=== PATIENT | male | born 1955 | race Caucasian/White ===

== ENCOUNTER 2025-03-17 00:48 | Day surgery (SDC) | payer BC, SELFPAY ==
--- OUTSIDE RECORDS SUMMARY | 2008-03-26 05:30 | XMS_ITS | Continuity of Care Document ---
Author Organization [facility] Address [address] [place] [address] [address] [place] [address] Phone Care Team Providers Care Moth Exterminator Name Role Phone Chanell Lopez Unavailable Unavailable Procedures Procedure Date Removal Of Chalazion Office/outpatient Visit, Est Office/outpatient Visit, Est Eye Exam, New Patient Advance Directives Directive Yes / No Effective Date File Name No Information Encounters Encounter Description Practice Location Reason(s) For Visit Diagnoses Date Provider Providers Copied on Encounter [facility], [address] [place] [address] [address], [place], [place], [id number], tel:[phone] SEC [facility] No Information 6-200 8 Jessica Lua. [address] [place] [address] , [address], [place], [place], [facility], . tel:[phone] Referring Provider: Flavio William OD [place], [address] [place], [place] [address]ate [place] [address], [place], [place], [facility]. tel:[phone] [place] [facility] [address] [place] [address] [address], [place], [place], [id number], [place] tel:[phone] SEC [facility] No Information 2-200 8 William OD Flavio. [address] [place] [address] , [address], [place], [place], [facility], . tel:[phone] [place] [facility] [address] [place] [address] [address], [place], [place], [id number], [place] tel:[phone] [facility] [place] No Information Feb-1 5-200 8 William OD Flavio. [address] [facility] , [address], [place], [address], [place]. tel:[phone] [facility], [address], [place], [place], [id number], tel:[phone] [facility] [place] No Information Oct-0 1-200 8 William OD Flavio. [address] , [address], [place], [address], [place]. tel:[phone] Family History Family Member Type Diagnosis Age At Onset No Information Payers Payer name Insurance type Covered alliance party ID Authoriza tion(s) No Information Social History Type Description Quantity Date Captured Comments Sex Male Smoking Status No Information Chief Complaint And Reason For Visit No Information Reason For Referral Reason For Referral No Information History Of Present Illness Encounter Date Complaint History Of Prese nt Illness No Information Functional Status Date Functional Assessmen t No Information Instructions Date Instruction Additional Infor mation No Information Assessments Type Assessment Date No Information Patient Care Teams Name Effective Dates (start - stop) Status Members No Information
[2025-03-09 09:16] VITALS: BMI 36.0
--- OUTSIDE RECORDS SUMMARY | 2025-03-17 00:50 | XMS_ITS | Data Portability ---
[facility] Address [address] [place] [address] Care Team Providers Care Internal Control Manager Name Role Phone YESY VALE Primary Care Provider Assessment Encounter Date Assessment Date Assessment LastModified by Organization Details LastModified Time 01/09/2024 01/09/2024 blood pressure i s up a little bit of walking in caloric restriction that is what he is going to try to do dyslipidemia like for him to be on the atorvastatin if it upsets him let me know set up with a colonoscopy continue current therapy blood pressure again diet exercise pelvic we will continue with amlodipine . [email or web address] Not available 01/20/2024 13:27:27 02/27/2024 02/27/2024 referral made to his work program for substance positivity he return to clinic 1 month he does not want to do anything about the 130/90 blood pressure today said she will try to walk more and eat better. During the interview the patient took out his cell phone and called his dental detail representative this was totally the patient's decision. That individual did state that for Mr. Tena to enter the program that there needed to be a primary care referral. He has already been evaluated by the program and those notes will be entered into the record. Paperwork has been filled out for the referral to the best of our ability [email or web address] Not available 03/01/2024 11:16:01 07/02/2024 07/02/2024 continue current therapy amlodipine for hypertension atorvastatin for dyslipidemia acetaminophen p.r.n. for arthritis I believe his last echo was in 2021 we will probably do 1 this year again. Colonoscopies [email or web address] Not available 07/02/2024 22:40:13 02/17/2025 02/17/2025 Hydrate continue current therapy follow up in 4 months he can check his pulse he knows how to do it and has 1 pulse oximetry at home too so he will monitor it let me know if it does not come down below 100 by tomorrow but again he needs to push fluids [email or web address] Not available 02/17/2025 22:44:30 Plan of Treatment Reminders Order Date Submit Date Provider Last Modified By Organization Details Last Modified Time Details Appointments ANY 15 2025 01:00P Luca Vale MD Not available Not available Not available Lab CMP, serum or plasma 2024 025 [facility], [address], [place], [address], 08/06/2024 08:26:25 CBC w/ auto diff 2024 025 [facility], [address], [place], [address], 08/06/2024 08:26:26 lipid panel, serum 2024 025 [facility], [address], [place], [address], 08/06/2024 08:26:24 PSA, total, serum or plasma 2023 024 [facility], [address], [place], [address], 01/17/2024 13:14:16 lipid panel, serum 2023 024 [facility], [address], [place], [address], 01/17/2024 13:14:14 CMP, serum or plasma 2023 024 [facility], [address], [place], [address], 01/17/2024 13:14:14 CBC w/ auto diff 2023 024 [email or web address], [address], [place], [address], 01/17/2024 13:14:15 Referral None recorded. Procedures colonosco py screening (PROC) 2024 025 [facility], [address], [address], [place], [address], 12/30/2024 11:55:37 Surgeries None recorded. Imaging None recorded. Medication Orders None recorded. Patient TargetsNo targets recorded. Patient Instructions Encounter Date Encounter Id Patient Instructions Last Modified By Organization Details Last Modified Time 07/02/2024 [id number] A healthy lifestyle: care instructions [email or web address] Not available 07/02/2024 17:13:19 Reason for Referral None Reported. Results Created Date Observation Date Name Description Value Unit Range Abnormal Flag Note LastModifiedBy Organization Detail LastModifiedTime 01/16/2001/17/2024 LIPID PANEL cholesterol, total 210 mg/dL 100-19 9 above high normal Not Available [facility] ([facility]) [address] [place], [address], 01/17/2024 13:14:14 01/16/20 24 01/17/2024 LIPID PANEL triglyceride s 180 mg/dL 0-149 above high normal Not Available [facility] ([facility]) [address] [facility], [place], [address], 01/17/2024 13:14:14 01/16/2001/17/2024 LIPID PANEL HDL cholesterol 52 mg/dL >39 Not Available [facility] ([facility]) [address] [place], [address], 01/17/2024 13:14:14 01/16/20 24 01/17/2024 LIPID PANEL VLDL cholesterol luke 32 mg/dL 5-40 Not Available [facility] ([facility]) [address] [facility], [place], [address], 01/17/2024 13:14:14 01/16/20 24 01/17/2024 LIPID PANEL LDL chol calc ([facility]) 126 mg/dL 0-99 above high normal Not Available [facility] ([facility]) [address] [facility], [place], [address], 01/17/2024 13:14:14 01/16/20 24 01/17/2024 COMP. METAB OLIC PANEL (14) glucose 112 mg/dL 70-99 above high normal Not Available [facility] ([facility]) [address] [place], [address], 01/17/2024 13:14:14 01/16/20 24 01/17/2024 COMP. METAB OLIC PANEL (14) BUN 14 mg/dL 8-27 Not Available [facility] ([facility]) [address] [place], [address], 01/17/2024 13:14:14 01/16/20 24 01/17/2024 COMP. METAB OLIC PANEL (14) creatinine 0.86 mg/dL 0.76-1 .27 Not Available [facility] ([facility]) [address] [place], [address], 01/17/2024 13:14:14 01/16/20 24 01/17/2024 COMP. METAB OLIC PANEL (14) eGFR 95 mL/mi n/1.7 3 >59 Not Available [facility] ([facility]) [address] [place], [address], 01/17/2024 13:14:14 01/16/20 24 01/17/2024 COMP. METAB OLIC PANEL (14) BUN/creatini ne ratio 16 10-24 Not Available [facility] ([facility]) [address] [place], [address], 01/17/2024 13:14:14 01/16/20 24 01/17/2024 COMP. METAB OLIC PANEL (14) sodium 139 mmol/ L 134-14 4 Not Available [facility] ([facility]) [address] [facility] [place], [address], 01/17/2024 13:14:14 01/16/20 24 01/17/2024 COMP. METAB OLIC PANEL (14) potassium 4.8 mmol/ L 3.5-5. 2 Not Available [facility] ([facility]) [address] [facility] [place], [address], 01/17/2024 13:14:14 01/16/20 24 01/17/2024 COMP. METAB OLIC PANEL (14) chloride 100 mmol/ L 96-106 Not Available [facility] ([facility]) [address] [facility], [place], [address], 01/17/2024 13:14:14 01/16/20 24 01/17/2024 COMP. METAB OLIC PANEL (14) carbon dioxide, total 25 mmol/ L Not Available [facility] ([facility]) [address] [facility] [place], [address], 01/17/2024 13:14:14 01/16/20 24 01/17/2024 COMP. METAB OLIC PANEL (14) calcium 9.5 mg/dL 8.6-10 .2 Not Available [facility] ([facility]) [address] [facility] [place], [address], 01/17/2024 13:14:14 01/16/20 24 01/17/2024 COMP. METAB OLIC PANEL (14) protein, total 7.7 g/dL 6.0-8. 5 Not Available [facility] ([facility]) [address] [facility] [place], [address], 01/17/2024 13:14:14 01/16/20 24 01/17/2024 COMP. METAB OLIC PANEL (14) albumin 4.5 g/dL 3.9-4. 9 Not Available [facility] ([facility]) [address] [facility], [place], [address], 01/17/2024 13:14:14 01/16/20 24 01/17/2024 COMP. METAB OLIC PANEL (14) globulin, total 3.2 g/dL 1.5-4. 5 Not Available [facility] ([facility]) [address] [facility], [place], [address], 01/17/2024 13:14:14 01/16/20 24 01/17/2024 COMP. METAB OLIC PANEL (14) bilirubin, total 0.3 mg/dL 0.0-1. 2 Not Available [facility] ([facility]) [address] [facility], [place], [address], 01/17/2024 13:14:14 01/16/20 24 01/17/2024 COMP. METAB OLIC PANEL (14) alkaline phosphatase 112 IU/L 44-121 Not Available [facility] ([facility]) [address] [facility], [place], [address], 01/17/2024 13:14:14 01/16/20 24 01/17/2024 COMP. METAB OLIC PANEL (14) AST (SGOT) 18 IU/L 0-40 Not Available [facility] ([facility]) [address] [facility], [place], [address], 01/17/2024 13:14:14 01/16/20 24 01/17/2024 COMP. METAB OLIC PANEL (14) ALT (SGPT) 19 IU/L 0-44 Not Available [facility] ([facility]) [address] [facility], [place], [address], 01/17/2024 13:14:14 01/16/20 24 01/17/2024 CBC WITH DIFFE RENTI AL/PL ATELE T WBC 6.0 x10e3 /uL 3.4-10 .8 Not Available [facility] ([facility]) [address] [facility], [place], [address], 01/17/2024 13:14:15 01/16/20 24 01/17/2024 CBC WITH DIFFE RENTI AL/PL ATELE T RBC 5.03 x10e6 /uL 4.14-5 .80 Not Available [facility] ([facility]) [address] [facility], [place], [address], 01/17/2024 13:14:15 01/16/20 24 01/17/2024 CBC WITH DIFFE RENTI AL/PL ATELE T hemoglobin 15.1 g/dL 13.0-1 7.7 Not Available [facility] ([facility]) [address] [facility], [place], [address], 01/17/2024 13:14:15 01/16/20 24 01/17/2024 CBC WITH DIFFE RENTI AL/PL ATELE T hematocrit 46.1 % 37.5-5 1.0 Not Available [facility] ([facility]) [address] [facility], [place], [address], 01/17/2024 13:14:15 01/16/2001/17/2024 CBC WITH DIFFE RENTI AL/PL ATELE T MCV 92 fL 79-97 Not Available [facility] ([facility]) [address] [place], [address], 01/17/2024 13:14:15 01/16/20 24 01/17/2024 CBC WITH DIFFE RENTI AL/PL ATELE T MCH 30.0 pg 26.6-3 3.0 Not Available [facility] ([facility]) [address] [place], [address], 01/17/2024 13:14:15 01/16/20 24 01/17/2024 CBC WITH DIFFE RENTI AL/PL ATELE T MCHC 32.8 g/dL 31.5-3 5.7 Not Available [facility] ([facility]) [address] [place], [address], 01/17/2024 13:14:15 01/16/20 24 01/17/2024 CBC WITH DIFFE RENTI AL/PL ATELE T RDW 12.8 % 11.6-1 5.4 Not Available [facility] ([facility]) [address] [facility], [place], [address], 01/17/2024 13:14:15 01/16/20 24 01/17/2024 CBC WITH DIFFE RENTI AL/PL ATELE T platelets 169 x10e3 /uL 150-45 0 Not Available [facility] ([facility]) [address] [facility], [place], [address], 01/17/2024 13:14:15 01/16/20 24 01/17/2024 CBC WITH DIFFE RENTI AL/PL ATELE T neutrophils 42 % notest ab. Not Available [facility] ([facility]) [address] [facility], [place], [address], 01/17/2024 13:14:15 01/16/20 24 01/17/2024 CBC WITH DIFFE RENTI AL/PL ATELE T lymphs 43 % notest ab. Not Available [facility] ([facility]) [address] [facility], [place], [address], 01/17/2024 13:14:15 01/16/20 24 01/17/2024 CBC WITH DIFFE RENTI AL/PL ATELE T monocytes 11 % notest ab. Not Available [facility] ([facility]) [address] [facility], [place], [address], 01/17/2024 13:14:15 01/16/20 24 01/17/2024 CBC WITH DIFFE RENTI AL/PL ATELE T eos 3 % notest ab. Not Available [facility] ([facility]) [address] [facility], [place], [address], 01/17/2024 13:14:15 01/16/20 24 01/17/2024 CBC WITH DIFFE RENTI AL/PL ATELE T basos 1 % notest ab. Not Available [facility] ([facility]) [address] [facility], [place], [address], 01/17/2024 13:14:15 01/16/20 24 01/17/2024 CBC WITH DIFFE RENTI AL/PL ATELE T neutrophils (absolute) 2.5 x10e3 /uL 1.4-7. 0 Not Available [facility] ([facility]) [address] [facility], [place], [address], 01/17/2024 13:14:15 01/16/20 24 01/17/2024 CBC WITH DIFFE RENTI AL/PL ATELE T lymphs (absolute) 2.6 x10e3 /uL 0.7-3. 1 Not Available [facility] ([facility]) [address] [facility], [place], [address], 01/17/2024 13:14:15 01/16/20 24 01/17/2024 CBC WITH DIFFE RENTI AL/PL ATELE T monocytes(ab solute) 0.7 x10e3 /uL 0.1-0. 9 Not Available [facility] ([facility]) [address] [facility], [place], [address], 01/17/2024 13:14:15 01/16/20 24 01/17/2024 CBC WITH DIFFE RENTI AL/PL ATELE T eos (absolute) 0.2 x10e3 /uL 0.0-0. 4 Not Available [facility] ([facility]) [address] [place], [address], 01/17/2024 13:14:15 01/16/20 24 01/17/2024 CBC WITH DIFFE RENTI AL/PL ATELE T baso (absolute) 0.1 x10e3 /uL 0.0-0. 2 Not Available [facility] ([facility]) [address] [place], [address], 01/17/2024 13:14:15 01/16/20 24 01/17/2024 CBC WITH DIFFE RENTI AL/PL ATELE T immature granulocytes 0 % notest ab. Not Available [facility] ([facility]) [address] [facility], [place], [address], 01/17/2024 13:14:15 01/16/20 24 01/17/2024 CBC WITH DIFFE RENTI AL/PL ATELE T immature grans (abs) 0.0 x10e3 /uL 0.0-0. 1 Not Available [facility] ([facility]) [address] [facility], [place], [address], 01/17/2024 13:14:15 01/16/20 24 01/17/2024 PROST ATE-S PECIF IC AG prostate specific Ag 0.3 NG/mL 0.0-4. 0 Jerry ECLIA metho dolog y. Accor ding to the Ameri can [employer] g[employer] i[employer] n, Serum PSA shoul d decre ase and remai n at undet ectab le level s after radic al prost atect matty. The AUA defin es bioch emica l recur rence as an initi al PSA value 0.2 ng/mL or great er follo wed by a subse quent confi rmato ry PSA value 0.2 ng/mL or great er. Value s obtai chacorta with diffe rent assay metho ds or kits canno t be used inter weeks eably . Resul ts canno t be inter prete d as absol jena evide nce of the prese nce or absen ce of zander rivera se. Not Available [facility] ([facility]) [address] [facility], [place], [address], 01/17/2024 13:14:16 08/06/19 25 08/06/2024 LIPID PANEL cholesterol, total 200 mg/dL 100-19 9 above high normal Not Available [facility] ([facility]) [address] [facility], [place], [address], 08/06/2024 08:26:24 08/06/19 25 08/06/2024 LIPID PANEL triglyceride s 255 mg/dL 0-149 above high normal Not Available [facility] ([facility]) [address] [place], [address], 08/06/2024 08:26:24 08/06/19 25 08/06/2024 LIPID PANEL HDL cholesterol 47 mg/dL >39 Not Available [facility] ([facility]) [address] [place], [address], 08/06/2024 08:26:24 08/06/19 25 08/06/2024 LIPID PANEL VLDL cholesterol luke 44 mg/dL 5-40 above high normal Not Available [facility] ([facility]) [address] [place], [address], 08/06/2024 08:26:24 08/06/19 25 08/06/2024 LIPID PANEL LDL chol calc ([facility]) 109 mg/dL 0-99 above high normal Not Available [facility] ([facility]) [address] [place], [address], 08/06/2024 08:26:24 08/06/19 25 08/06/2024 COMP. METAB OLIC PANEL (14) glucose 103 mg/dL 70-99 above high normal Not Available [facility] ([facility]) [address] [place], [address], 08/06/2024 08:26:25 08/06/19 25 08/06/2024 COMP. METAB OLIC PANEL (14) BUN 14 mg/dL 8-27 Not Available [facility] ([facility]) [address] [place], [address], 08/06/2024 08:26:25 08/06/19 25 08/06/2024 COMP. METAB OLIC PANEL (14) creatinine 0.86 mg/dL 0.76-1 .27 Not Available [facility] ([facility]) [address], [place], [address], 08/06/2024 08:26:25 08/06/19 25 08/06/2024 COMP. METAB OLIC PANEL (14) eGFR 95 mL/mi n/1.7 3 >59 Not Available [facility] ([facility]) [address] [place], [address], 08/06/2024 08:26:25 08/06/19 25 08/06/2024 COMP. METAB OLIC PANEL (14) BUN/creatini ne ratio 16 10-24 Not Available [facility] ([facility]) [address] [facility] [place], [address], 08/06/2024 08:26:25 08/06/19 25 08/06/2024 COMP. METAB OLIC PANEL (14) sodium 139 mmol/ L 134-14 4 Not Available [facility] ([facility]) [address] [facility] [place], [address], 08/06/2024 08:26:25 08/06/19 25 08/06/2024 COMP. METAB OLIC PANEL (14) potassium 4.4 mmol/ L 3.5-5. 2 Not Available [facility] ([facility]) [address] [facility] [place], [address], 08/06/2024 08:26:25 08/06/19 25 08/06/2024 COMP. METAB OLIC PANEL (14) chloride 103 mmol/ L 96-106 Not Available [facility] ([facility]) [address] [facility] [place], [address], 08/06/2024 08:26:25 08/06/19 25 08/06/2024 COMP. METAB OLIC PANEL (14) carbon dioxide, total 22 mmol/ L 20-29 Not Available [facility] ([facility]) [address] [facility] [place], [address], 08/06/2024 08:26:25 08/06/19 25 08/06/2024 COMP. METAB OLIC PANEL (14) calcium 9.0 mg/dL 8.6-10 .2 Not Available [facility] ([facility]) [address] [facility] [place], [address], 08/06/2024 08:26:25 08/06/19 25 08/06/2024 COMP. METAB OLIC PANEL (14) protein, total 7.4 g/dL 6.0-8. 5 Not Available [facility] ([facility]) [address] [facility] [place], [address], 08/06/2024 08:26:25 08/06/19 25 08/06/2024 COMP. METAB OLIC PANEL (14) albumin 4.3 g/dL 3.9-4. 9 Not Available [facility] ([facility]) [address] [facility] [place], [address], 08/06/2024 08:26:25 08/06/19 25 08/06/2024 COMP. METAB OLIC PANEL (14) globulin, total 3.1 g/dL 1.5-4. 5 Not Available [facility] ([facility]) [address] [facility] [place], [address], 08/06/2024 08:26:25 08/06/19 25 08/06/2024 COMP. METAB OLIC PANEL (14) bilirubin, total 0.4 mg/dL 0.0-1. 2 Not Available [facility] ([facility]) [address] [facility] [place], [address], 08/06/2024 08:26:25 08/06/19 25 08/06/2024 COMP. METAB OLIC PANEL (14) alkaline phosphatase 127 IU/L 44-121 above high normal Not Available [facility] ([facility]) [address] [facility] [place], [address], 08/06/2024 08:26:25 08/06/19 25 08/06/2024 COMP. METAB OLIC PANEL (14) AST (SGOT) 17 IU/L 0-40 Not Available [facility] ([facility]) [address] [facility] [place], [address], 08/06/2024 08:26:25 08/06/19 25 08/06/2024 COMP. METAB OLIC PANEL (14) ALT (SGPT) 18 IU/L 0-44 Not Available [facility] ([facility]) [address] [facility] [place], [address], 08/06/2024 08:26:25 08/06/19 25 08/06/2024 CBC WITH DIFFE RENTI AL/PL ATELE T WBC 7.7 x10e3 /uL 3.4-10 .8 Not Available [facility] ([facility]) [address] [place], [address], 08/06/2024 08:26:26 08/06/19 25 08/06/2024 CBC WITH DIFFE RENTI AL/PL ATELE T RBC 4.87 x10e6 /uL 4.14-5 .80 Not Available [facility] ([facility]) [address] [place], [address], 08/06/2024 08:26:26 08/06/1908/06/2024 CBC WITH DIFFE RENTI AL/PL ATELE T hemoglobin 14.4 g/dL 13.0-1 7.7 Not Available [facility] ([facility]) [address] [place], [address], 08/06/2024 08:26:26 08/06/19 25 08/06/2024 CBC WITH DIFFE RENTI AL/PL ATELE T hematocrit 43.2 % 37.5-5 1.0 Not Available [facility] ([facility]) [address] [place], [address], 08/06/2024 08:26:26 08/06/19 25 08/06/2024 CBC WITH DIFFE RENTI AL/PL ATELE T MCV 89 fL 79-97 Not Available [facility] ([facility]) [address] [place], [address], 08/06/2024 08:26:26 08/06/19 25 08/06/2024 CBC WITH DIFFE RENTI AL/PL ATELE T MCH 29.6 pg 26.6-3 3.0 Not Available [facility] ([facility]) [address] [facility], [place], [address], 08/06/2024 08:26:26 08/06/19 25 08/06/2024 CBC WITH DIFFE RENTI AL/PL ATELE T MCHC 33.3 g/dL 31.5-3 5.7 Not Available [facility] ([facility]) [address] [place], [address], 08/06/2024 08:26:26 08/06/19 25 08/06/2024 CBC WITH DIFFE RENTI AL/PL ATELE T RDW 12.8 % 11.6-1 5.4 Not Available [facility] ([facility]) [address] [place], [address], 08/06/2024 08:26:26 08/06/19 25 08/06/2024 CBC WITH DIFFE RENTI AL/PL ATELE T platelets 185 x10e3 /uL 150-45 0 Not Available [facility] ([facility]) [address] [place], [address], 08/06/2024 08:26:26 08/06/19 25 08/06/2024 CBC WITH DIFFE RENTI AL/PL ATELE T neutrophils 54 % notest ab. Not Available [facility] ([facility]) [address] [place], [address], 08/06/2024 08:26:26 08/06/19 25 08/06/2024 CBC WITH DIFFE RENTI AL/PL ATELE T lymphs 34 % notest ab. Not Available [facility] ([facility]) [address] [facility], [place], [address], 08/06/2024 08:26:26 08/06/19 25 08/06/2024 CBC WITH DIFFE RENTI AL/PL ATELE T monocytes 10 % notest ab. Not Available [facility] ([facility]) [address] [facility], [place], [address], 08/06/2024 08:26:26 08/06/19 25 08/06/2024 CBC WITH DIFFE RENTI AL/PL ATELE T eos 1 % notest ab. Not Available [facility] ([facility]) [address] [facility], [place], [address], 08/06/2024 08:26:26 08/06/19 25 08/06/2024 CBC WITH DIFFE RENTI AL/PL ATELE T basos 1 % notest ab. Not Available [facility] ([facility]) [address] [facility], [place], [address], 08/06/2024 08:26:26 08/06/19 25 08/06/2024 CBC WITH DIFFE RENTI AL/PL ATELE T neutrophils (absolute) 4.1 x10e3 /uL 1.4-7. 0 Not Available [facility] ([facility]) [address] [facility], [place], [address], 08/06/2024 08:26:26 08/06/19 25 08/06/2024 CBC WITH DIFFE RENTI AL/PL ATELE T lymphs (absolute) 2.7 x10e3 /uL 0.7-3. 1 Not Available [facility] ([facility]) [address] [facility], [place], [address], 08/06/2024 08:26:26 08/06/19 25 08/06/2024 CBC WITH DIFFE RENTI AL/PL ATELE T monocytes(ab solute) 0.7 x10e3 /uL 0.1-0. 9 Not Available [facility] ([facility]) [address] [facility], [place], [address], 08/06/2024 08:26:26 08/06/19 25 08/06/2024 CBC WITH DIFFE RENTI AL/PL ATELE T eos (absolute) 0.1 x10e3 /uL 0.0-0. 4 Not Available [facility] ([facility]) [address] [place], [address], 08/06/2024 08:26:26 08/06/19 25 08/06/2024 CBC WITH DIFFE RENTI AL/PL ATELE T baso (absolute) 0.1 x10e3 /uL 0.0-0. 2 Not Available [facility] ([facility]) [address] [facility], [place], [address], 08/06/2024 08:26:26 08/06/19 25 08/06/2024 CBC WITH DIFFE RENTI AL/PL ATELE T immature granulocytes 0 % notest ab. Not Available [facility] ([facility]) [address] [facility], [place], [address], 08/06/2024 08:26:26 08/06/19 25 08/06/2024 CBC WITH DIFFE RENTI AL/PL ATELE T immature grans (abs) 0.0 x10e3 /uL 0.0-0. 1 Not Available [facility] ([facility]) [address] [place], [address], 08/06/2024 08:26:26 01/18/20 24 04/13/2020 upper endos copy proce dure (EGD) (PROC ) No observ ation record ed. BARCODE Not Available 2023 11:22:04 Result Notes None recorded. Problems Name Problem SNOMED Code Status Onset Date Resolution Date Notes Provider Name and Address Organization Details Recorded Time Essential hypertension 23679535 Active 2023 Yesy Vale MD Attn: Lorelei neff,[address] [facility], [place], [address], [facility] 4 13:27:29 Hyperlipidemia 89281213 Active 2023 Yesy Vale MD Attn: Lorelei neff,[address] [facility], [place], [address], [facility] 4 13:27:33 Osteoarthritis 240665643 Active 2023 Yesy Vale MD Attn: Lorelei neff,[address], [place], [address], [facility] 4 13:27:34 Problem Notes None recorded. Procedures Surgical History Date Name Laterality Status Provider Name and Address Organization Details Recorded Time 2 Knee Surgery completed Elizabeth Gardner MA [facility] 01/09/2024 16:40:45 8 Appendectomy completed Elizabeth Gardner MA [facility] 01/09/2024 16:40:58 Imaging Results None recorded. Procedure Notes None recorded. Medical Equipment None Reported. Allergies No known drug allergies Medications Name Sig Start Date Stop Date Status Note LastModified by Organization Details LastModified Time atorvastat in 20 mg tablet 08/07 completed mess with pts stomach see pt case 5 Not Available Not Available Not Available amlodipine 2.5 mg tablet TAKE 1 TABLET DAILY 2024 active Not Available Not Available Not Avai lable rosuvastat in 20 mg tablet TAKE 1 TABLET DAILY 2024 active Not Available Not Available Not Avai lable Vitals Date Recorded Body height Body mass index (BMI) Body weight Heart rate Oxygen saturation Oxygen saturation in Arterial blood by Pulse oximetry Systolic And Diastolic Provider Name and Address Organization Details Last Updated DateTime 5 177.8 cm 37.5 kg/m2 268503. 12 g 98 /min 98 % 98 % 130/84 mm[Hg] Rowena Payne MA [facility] 5 16:09:57 Date Recorded Body weight Body mass index (BMI) Body height Heart rate Oxygen saturation Oxygen saturation in Arterial blood by Pulse oximetry Systolic And Diastolic Provider Name and Address Organization Details Last Updated DateTime 4 453584. 95 g 36.3 kg/m2 177.8 cm 64 /min 98 % 98 % 142/70 mm[Hg] Elizabeth Gardner MA [facility] 4 16:44:09 Date Recorded Body height Body mass index (BMI) Body weight Heart rate Oxygen saturation Oxygen saturation in Arterial blood by Pulse oximetry Systolic And Diastolic Provider Name and Address Organization Details Last Updated DateTime 5 177.8 cm 36.5 kg/m2 507331. 62 g 110 /min 96 % 96 % 138/70 mm[Hg] Elizabeth Gardner MA [facility] 5 15:57:06 Date Recorded Body height Body mass index (BMI) Body weight Heart rate Oxygen saturation Oxygen saturation in Arterial blood by Pulse oximetry Systolic And Diastolic Provider Name and Address Organization Details Last Updated DateTime 4 177.8 cm 36.6 kg/m2 459674. 34 g 96 /min 97 % 97 % 130/90 mm[Hg] Rowena Payne MA [facility] 4 15:05:06 Social History Question Answer Notes LastModified by Organizat ion Details LastModified Time Tobacco Smoking Status Never Smoker [facility]/09[facility]24 16:38:25 Are You Blind Or Do You Have Difficulty Seeing? No Information n ot available 01/09/2024 What Is Your Level Of Caffeine Consumption? Moderate Coffee Information not available 01/09/2024 In The 14 Days Before Symptom Onset, Have You Had Close Contact With A Laboratory-confirm ed COVID-19 While That Case Was Ill? No Information n ot available 01/09/2024 In The 14 Days Before Symptom Onset, Have You Had Close Contact With A Person Who Is Under Investigation For COVID-19 While That Person Was Ill? No Information not available 01/09/2024 Have You Been To An Area Known To Be High Risk For COVID-19? No Information not available 01/09/2024 Are You Deaf Or Do You Have Serious Difficulty Hearing? No Information not available 01/09/2024 What Type Of Diet Are You Following? REGULAR Information n ot available 01/09/2024 Are There Any Guns Present In Your Home? No Information not available 01/09/2024 What Was The Date Of Your Most Recent Tobacco Screening? 02/17/2025 Information not available 02/17/2025 What Is Your Relationship Status? Information not available 01/09/2024 Do You Use Your Seat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
--- OUTSIDE RECORDS SUMMARY | 2025-03-17 00:50 | XMS_ITS | Clinical Summary ---
Author Organization [facility] Address [address] [place] [address] Care Team Providers Care Business Planning Manager Name Role Phone Perico Vale MD Primary Care Provider [phone] Allergies No known active allergies Medications amLODIPine (NORVASC) 2.5 mg tabletIndicati ons:hypertensi on Take 1 tablet (2.5 mg total) by mouth every morning 9 Active acetaminophen (TYLENOL) 500 mg tabletIndicati ons:Pain Take 2 tablets (1,000 mg total) by mouth every 8 (eight) hours 90 tablet 2 Active atorvastatin (LIPITOR) 10 mg tablet atorvastatin 10 mg tablet TAKE 1 TABLET DAILY 022 Discontin ued(Other ) Active Problems Problem Noted Date Diagnosed Date Primary osteoarthritis of left knee 04/27/2022 Hyperglycemia 02/27/2022 Essential hypertension 02/23/2022 Pain in limb 02/23/2022 Rash 02/23/2022 Arthralgia of left knee 06/29/2021 Heart murmur 06/29/2021 Pain in joint of left shoulder 06/29/2021 Gastroesophageal reflux disease without esophagi tis 02/20/2021 Osteoarthritis 04/08/2020 Abnormal cardiovascular stress test 10/03/2018 Dyslipidemia 12/14/2017 Immunizations Immunization Administration Dates Next Due Moderna SARS-CoV-2 Monovalent Vaccination (12+ Y RS) 01/27/2021 Surgical History Surgery Date Site/Laterality Comments APPENDECTOMY ~40 years ago ESOPHAGEAL DILATION 2019 COLONOSCOPY Medical History Medical History Date Comments HTN (hypertension) HLD (hyperlipidemia) Family History Medical History Relation Name Comments Stroke Mother Anesthesia problems Neg Hx Relation Name Status Comments Mother Social History Tobacco Use Types Packs/Day Years Used Date Smoking Tobacco: Never Smokeless Tobacco: Never Tobacco Cessation:Counseling Given: Not Answered AUDIT-C Answer Date Recorded Q1: How often do you have a drink containing alc ohol? 2-3 times a week 04/05/2022 Q2: How many drinks containi ng alcohol do you have on a typical day when you are drinking? 3 or 4 04/05/2022 Frequency of Binge Drinking Not on file 03/21 Sex and Gender Information Value Date Recorded Sex Assigned at Not on file Legal Sex Male 8:52 AM CDT Gender Identity Not on file Sexual Orientation Not on file Obstetrics History Last Filed Vital Signs Vital Sign Reading Time Taken Comments Blood Pressure 128/89 05/11/2022 1:38 PM [employer] Pulse 92 05/11/2022 1:38 PM [employer] Temperature 36.8 C (98.2 F) 05/11/2022 1:38 PM [employer] Respiratory Rate 18 05/11/2022 1:38 PM [employer] Oxygen Saturation 99% 05/11/2022 1:38 PM [employer] Inhaled Oxygen Concentration - - Weight 115.2 kg (254 lb) 04/28/2022 11:24 AM [employer] Height 177.8 cm (5' 10) 04/28/2022 11:24 AM [employer] Body Mass Index 36.45 04/28/2022 11:24 AM [employer] Plan of Treatment Health Maintenance Due Date Last Done Comments Colon Cancer Screening-Colonoscopy 1955 Depression Screening 1955 Hepatitis C Screening 1955 Prostate Cancer Screening-PSA 1957 DTaP/Tdap/Td Vaccine (1 - Tdap) 1968 Hepatitis B Screening 07/31/1975 Pneumococcal vaccine 65+ (1 of 1 - PCV) 07/31/2007 Zoster Vaccine (1 of 2) 07/31/2007 Abdominal Aortic Aneurysm (A AA) Screen 2022 Well Visit 65+ 2022 Fall Risk Assessment 04/27/2023 04/27/2022 Covid-19 Vaccine ( season) 2025 02/17/2021, 01/27/2021, 01/27/2021 Influenza Vaccine (#1) 2025 Medical Devices Implanted Type Area Wild Life Manager Device Identifier Shelf Expiration Date Model / Serial / Lot [employer] Attune Fb Tib Base Sz 6 Por [id number] - Sna - [id number] Implanted:Qty: 1 on 04/27/2022 by Handy Chan MD at [facility] Other - see comments Left: Knee [employer] [id number] 01/19/2032 [id number] / NA / [id number] [employer] Attune Cruciate Retain Cementless Knee Left 7 Component Femoral [id number] - Sna - [id number] Implanted:Qty: 1 on 04/27/2022 by Handy Chan MD at [facility] Other - see comments Left: Knee [employer] [id number] 07/19/2031 [id number] / NA / [id number] [employer] Insert Tibial 7 14mm Knee Aox Cruc-Ret Fix Brng Attune Strl [id number] - Sna - [id number] Implanted:Qty: 1 on 04/27/2022 by Handy Chan MD at [facility] Other - see comments Left: Knee [employer] [id number] 04/19/2024 [id number] / NA / [id number] Insurance [employer] OOS BLUE ACCESS OOS BLUE ACC CHOICE OOS BLUE ACCESS OOS Care Teams Business Planning Manager Relationship Specialty Start Date End Date Perico Vale MD PCP - General Internal Medicine 08/03/21
--- OUTSIDE RECORDS SUMMARY | 2025-03-17 00:50 | XMS_ITS | Data Portability ---
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 Blood work and colonoscopy [email or web address] Not available 09/24/2022 12:02:17 04/18/2023 04/18/2023 Will continue current therapy last blood work been reviewed follow-up in 4 months [email or web address] Not available 04/28/2023 13:57:48 Plan of Treatment Reminders Order Date Submit Date Provider Last Modified By Organization Details Last Modified Time Details Appointments None recorded. Lab PSA, total, serum or plasma [address] [facility], [address] [place], [address], 3 12:40:33 CMP, serum or plasma [address] [facility], [address] [place], [address], 3 12:00:06 lipid panel, serum [address] [facility], [address] [place], [address], 3 12:00:08 Referral None recorded. Procedures colonoscopy screening (PROC) 2022 023 [email or web address] Anamaria Oneill MD, [address] [facility], [facility] [address], [place], [address], 14:27:53 Surgeries None recorded. Imaging None recorded. Medication Orders None recorded. Patient TargetsNo targets recorded. Patient InstructionsNo instructions recorded. Reason for Referral None Reported. Results Created Date Observation Date Name Description Value Unit Range Abnormal Flag Note LastModifiedBy Organization Detail LastModifiedTime 07/15/1907/15/2021 PSA SCREE N PSA medicare screen 0.30 NG/mL 0.00-4 .00 Not Available [facility] (Lab) [address] [place], [address], 07/15/2021 12:34:12 07/15/19 22 07/15/2021 LIPID PANEL cholesterol 200 mg/dL 140-19 9 high NIH MARIA ELENA NSUS RECOM MENDA TION FOR [place] STERO L: ADULT CHILD LOW RISK: <200 <170 BORDE RLINE : <200- 239 ----- HIGH RISK: >240 >200 Not Available [facility] (Lab) [address] [place], [address], 07/15/2021 12:06:11 07/15/1907/15/2021 LIPID PANEL triglyceride s 223 mg/dL 0-150 high NIH MARIA ELENA NSUS REPOR T RECOM MENDA TION FOR TRIGL YCERI SHARIFA: ADULT CHILD LOW RISK: <150 ----- BODER LINE: 150-1 99 ----- HIGH RISK: >200 ----- Not Available [facility] (Lab) [address] [place], [address], 07/15/2021 12:06:11 07/15/19 22 07/15/2021 LIPID PANEL HDL cholesterol 58 mg/dL 40- Not Available [facility] (Lab) [address] [place], [address], 07/15/2021 12:06:11 07/15/19 22 07/15/2021 LIPID PANEL LDL cholesterol, calculated 97 mg/dL 0-130 NIH MARIA ELENA NSUS REPOR T RECOM MENDA TIONS FOR LDL: ADULT CHILD LOW RISK <130 <110 (OPTI MAL LDL) <100 ----- BORDE RLINE : 130-1 59 ----- HIGH RISK: >160 >130 A TRIGL YCERI DE RESUL T >400 INVAL IDATE S THE CALCU LATIO N FOR LDL FRACT IONAT ION - THE LDL RESUL T WILL NOT BE REPOR AYAH. Not Available [facility] (Lab) [address] [place], [address], 07/15/2021 12:06:11 07/15/19 22 07/15/2021 COMPR EHENS MALISSA METAB OLIC PANEL sodium 137 mmol/ L 137-14 5 Not Available [facility] (Lab) [address] [place], [address], 07/15/2021 12:05:37 07/15/19 22 07/15/2021 COMPR EHENS MALISSA METAB OLIC PANEL potassium 4.5 mmol/ L 3.5-5. 1 Not Available [facility] (Lab) [address] [place], [address], 07/15/2021 12:05:37 07/15/19 22 07/15/2021 COMPR EHENS MALISSA METAB OLIC PANEL chloride 103 mmol/ L 98-107 Not Available [facility] (Lab) [address] [place], [address], 07/15/2021 12:05:37 07/15/19 22 07/15/2021 COMPR EHENS MALISSA METAB OLIC PANEL carbon dioxide 31 mmol/ L 22-30 high Not Available [facility] (Lab) [address] [place], [address], 07/15/2021 12:05:37 07/15/19 22 07/15/2021 COMPR EHENS MALISSA METAB OLIC PANEL agap 7.5 mmol/ L 14-22 low Not Available [facility] (Lab) [address] [place], [address], 07/15/2021 12:05:37 07/15/19 22 07/15/2021 COMPR EHENS MALISSA METAB OLIC PANEL glucose 115 mg/dL 70-99 high Not Available [facility] (Lab) [address] [place], [address], 07/15/2021 12:05:37 07/15/19 22 07/15/2021 COMPR EHENS MALISSA METAB OLIC PANEL BUN 15 mg/dL 8-19 Not Available [facility] (Lab) [address] [place], [address], 07/15/2021 12:05:37 07/15/19 22 07/15/2021 COMPR EHENS MALISSA METAB OLIC PANEL creatinine 0.75 mg/dL 0.66-1 .25 Not Available [facility] (Lab) [address] [place], [address], 07/15/2021 12:05:37 07/15/19 22 07/15/2021 COMPR EHENS MALISSA METAB OLIC PANEL GFR >60 Refer ence Range : [place] ge GFR Healt hy Adult : >60 mL/mi n/1.7 3 m2 Chron ic Kidne y Disea se: 15-60 mL/mi n/1.7 3 m2 Kidne y Failu re: <15/m L/min /1.73 m2 www.n iddk. nih.g ov The MDRD study equat ion has not been valid ated in child fernanda <18 years of age; pregn ant women ; the elder ly >85 years of age; or in some racia l or ethni c subgr oups, such as Hispa nics. Outsi de the valid ated genevieve eters , estim ated GFR is less accur ate, requi ring clini luke judgm ent on a case- by-ca se basis . Clini luke inter preta tion for other races and ages must be made by the clini laurie. The MDRD study equat ion has not been valid ated for the evalu ation of serum creat inine relat ed to nutri ikan l statu s or medic ation usage . For perso ns <18 years of age, a pedia tric GFR calcu latdilan is avail able on the [facility] websi te: https :[email or web address] garcias.estrella valdes/pr ofess ional s/kdo qi/gf r_cal culat or Not Available [facility] (Lab) [address] [place], [address], 07/15/2021 12:05:37 07/15/19 22 07/15/2021 COMPR EHENS MALISSA METAB OLIC PANEL alkaline phosphatase 97 U/L 38-126 Not Available [facility] (Lab) [address] [place], [address], 07/15/2021 12:05:37 07/15/19 22 07/15/2021 COMPR EHENS MALISSA METAB OLIC PANEL alanine aminotransfe rase 26 U/L 0-50 Not Available [facility] (Lab) [address] [place], [address], 07/15/2021 12:05:37 07/15/19 22 07/15/2021 COMPR EHENS MALISSA METAB OLIC PANEL aspartate aminotransfe rase 24 U/L 15-46 Not Available [facility] (Lab) [address] [place], [address], 07/15/2021 12:05:37 07/15/19 22 07/15/2021 COMPR EHENS MALISSA METAB OLIC PANEL bilirubin, total 0.50 mg/dL 0.20-1 .30 Not Available [facility] (Lab) [address] [place], [address], 07/15/2021 12:05:37 07/15/19 22 07/15/2021 COMPR EHENS MALISSA METAB OLIC PANEL calcium 9.7 mg/dL 8.4-10 .2 Not Available [facility] (Lab) [address] [place], [address], 07/15/2021 12:05:37 07/15/19 22 07/15/2021 COMPR EHENS MALSISA METAB OLIC PANEL total protein 7.7 g/dL 6.3-8. 2 Not Available [facility] (Lab) [address] [place], [address], 07/15/2021 12:05:37 07/15/19 22 07/15/2021 COMPR EHENS MALISSA METAB OLIC PANEL albumin 4.6 g/dL 3.0-4. 4 high Not Available [facility] (Lab) [address] [place], [address], 07/15/2021 12:05:37 07/15/19 22 07/15/2021 COMPR EHENS MALISSA METAB OLIC PANEL globulin 3.1 g/dL 2.6-4. 2 Not Available [facility] (Lab) [address] [place], [address], 07/15/2021 12:05:37 07/15/19 22 07/15/2021 COMPR EHENS MALISSA METAB OLIC PANEL A/G ratio 1.5 ratio 1.0-2. 0 Not Available [facility] (Lab) [address] [place], [address], 07/15/2021 12:05:37 07/15/19 22 07/15/2021 CBC/C OMPLE TE BLD COUNT W/DIF F white blood cells 5.5 x10'3 /uL 4.2-10 .8 Not Available [facility] (Lab) [address] [place], [address], 07/15/2021 11:53:00 07/15/19 22 07/15/2021 CBC/C OMPLE TE BLD COUNT W/DIF F red blood cells 5.16 x10'6 /uL 4.10-5 .80 Not Available [facility] (Lab) [address] [place], [address], 07/15/2021 11:53:00 07/15/19 22 07/15/2021 CBC/C OMPLE TE BLD COUNT W/DIF F hemoglobin 15.4 g/dL 13.2-1 7.0 Not Available [facility] (Lab) [address] [place], [address], 07/15/2021 11:53:00 07/15/19 22 07/15/2021 CBC/C OMPLE TE BLD COUNT W/DIF F hematocrit 45.5 % 39.3-5 0.0 Not Available [facility] (Lab) [address] [place], [address], 07/15/2021 11:53:00 07/15/19 22 07/15/2021 CBC/C OMPLE TE BLD COUNT W/DIF F mean red cell volume 88.2 fL 80.0-9 7.0 Not Available [facility] (Lab) [address] [place], [address], 07/15/2021 11:53:00 07/15/19 22 07/15/2021 CBC/C OMPLE TE BLD COUNT W/DIF F mean red cell hemoglobin 29.8 pg 27.0-3 3.0 Not Available [facility] (Lab) [address] [place], [address], 07/15/2021 11:53:00 07/15/19 22 07/15/2021 CBC/C OMPLE TE BLD COUNT W/DIF F mean RBC HGB concentratio n 33.8 g/dL 31.0-3 6.0 Not Available [facility] (Lab) [address] [place], [address], 07/15/2021 11:53:00 07/15/19 22 07/15/2021 CBC/C OMPLE TE BLD COUNT W/DIF F red cell distribution width 12.6 % 11.8-1 5.5 Not Available [facility] (Lab) [address] [place], [address], 07/15/2021 11:53:00 07/15/19 22 07/15/2021 CBC/C OMPLE TE BLD COUNT W/DIF F platelets 181 x10'3 /uL 150-40 0 Not Available [facility] (Lab) [address] [place], [address], 07/15/2021 11:53:00 07/15/19 22 07/15/2021 CBC/C OMPLE TE BLD COUNT W/DIF F mean platelet volume 11.9 fL 9.0-12 .4 Not Available [facility] (Lab) [address] [place], [address], 07/15/2021 11:53:00 07/15/19 22 07/15/2021 CBC/C OMPLE TE BLD COUNT W/DIF F neutrophils 50.5 % 39.0-7 2.0 Not Available [facility] (Lab) [address] [place], [address], 07/15/2021 11:53:00 07/15/19 22 07/15/2021 CBC/C OMPLE TE BLD COUNT W/DIF F lymphocytes 35.4 % 16.0-4 7.0 Not Available [facility] (Lab) [address] [place], [address], 07/15/2021 11:53:00 07/15/19 22 07/15/2021 CBC/C OMPLE TE BLD COUNT W/DIF F monocytes 9.7 % 5.0-12 .0 Not Available [facility] (Lab) [address] [place], [address], 07/15/2021 11:53:00 07/15/19 22 07/15/2021 CBC/C OMPLE TE BLD COUNT W/DIF F eosinophils 3.1 % 1.0-7. 0 Not Available [facility] (Lab) [address] [facility] [place], [address], 07/15/2021 11:53:00 07/15/19 22 07/15/2021 CBC/C OMPLE TE BLD COUNT W/DIF F basophils 1.1 % 0.0-2. 0 Not Available [facility] (Lab) [address] [place], [address], 07/15/2021 11:53:00 07/15/19 22 07/15/2021 CBC/C OMPLE TE BLD COUNT W/DIF F immature granulocytes 0.2 % 0.00-0 .50 Not Available [facility] (Lab) [address] [place], [address], 07/15/2021 11:53:00 07/15/19 22 07/15/2021 CBC/C OMPLE TE BLD COUNT W/DIF F neutrophils, absolute count 2.80 x10'3 /uL 1.5-8. 0 Not Available [facility] (Lab) [address] [place], [address], 07/15/2021 11:53:00 07/15/19 22 07/15/2021 CBC/C OMPLE TE BLD COUNT W/DIF F lymphocytes, absolute count 1.96 x10'3 /uL 1.07-3 .43 Not Available [facility] (Lab) [address] [place], [address], 07/15/2021 11:53:00 07/15/19 22 07/15/2021 CBC/C OMPLE TE BLD COUNT W/DIF F monocytes, absolute count 0.54 x10'3 /uL 0.29-0 .99 Not Available [facility] (Lab) [address] [place], [address], 07/15/2021 11:53:00 07/15/19 22 07/15/2021 CBC/C OMPLE TE BLD COUNT W/DIF F eosinophils, absolute count 0.17 x10'3 /uL 0.02-0 .53 Not Available [facility] (Lab) [address] [place], [address], 07/15/2021 11:53:00 07/15/19 22 07/15/2021 CBC/C OMPLE TE BLD COUNT W/DIF F basophils, absolute count 0.06 x10'3 /uL 0.01-0 .08 Not Available [facility] (Lab) [address] [place], [address], 07/15/2021 11:53:00 07/15/19 22 07/15/2021 CBC/C OMPLE TE BLD COUNT W/DIF F immature granulocytes ,absolute 0.01 x10'3 /uL 0.00-0 .05 Not Available [facility] (Lab) [address] [place], [address], 07/15/2021 11:53:00 07/15/19 22 07/15/2021 CBC/C OMPLE TE BLD COUNT W/DIF F nucleated red blood cells 0.0 % -0 Not Available [facility] (Lab) [address] [place], [address], 07/15/2021 11:53:00 07/15/19 22 07/15/2021 CBC/C OMPLE TE BLD COUNT W/DIF F NRBC# 0.00 x10'3 /uL Not Available [facility] (Lab) [address] [place], [address], 07/15/2021 11:53:00 03/10/20 22 03/10/2022 HEMOG LOBIN A1C HA1C 6.0 % 4.0-6. 0 Diabe gato Scree mg Crite chau: <5.7% Consi stent with absen ce of diabe gato 5.7-6 .4% Consi stent with incre ased risk for diabe gato (pred iabet es) >OR=6 .5% Consi stent with diabe gato REFER ENCE: Diabe gato Care 2016, 39(Moy ppl.1 ):s13 -s22 Not Available [facility] (Lab) [address] [place], [address], 03/10/2022 14:24:37 03/10/20 22 03/10/2022 COMPR EHENS MALISSA METAB OLIC PANEL sodium 141 mmol/ L 137-14 5 Not Available [facility] (Lab) [address] [place], [address], 03/10/2022 13:26:35 03/10/20 22 03/10/2022 COMPR EHENS MALISSA METAB OLIC PANEL potassium 4.2 mmol/ L 3.5-5. 1 Not Available [facility] (Lab) [address] [place], [address], 03/10/2022 13:26:35 03/10/20 22 03/10/2022 COMPR EHENS MALISSA METAB OLIC PANEL chloride 102 mmol/ L 98-107 Not Available [facility] (Lab) [address] [place], [address], 03/10/2022 13:26:35 03/10/20 22 03/10/2022 COMPR EHENS MALISSA METAB OLIC PANEL carbon dioxide 28 mmol/ L 22-30 Not Available [facility] (Lab) [address] [place], [address], 03/10/2022 13:26:35 03/10/20 22 03/10/2022 COMPR EHENS MALISSA METAB OLIC PANEL anion gap 15.2 mmol/ L 14-22 Not Available [facility] (Lab) [address] [place], [address], 03/10/2022 13:26:35 03/10/20 22 03/10/2022 COMPR EHENS MALISSA METAB OLIC PANEL glucose 123 mg/dL 70-99 high Not Available [facility] (Lab) [address] [place], [address], 03/10/2022 13:26:35 03/10/20 22 03/10/2022 COMPR EHENS MALISSA METAB OLIC PANEL BUN 16 mg/dL 8-19 Not Available [facility] (Lab) [address] [place], [address], 03/10/2022 13:26:35 03/10/20 22 03/10/2022 COMPR EHENS MALISSA METAB OLIC PANEL creatinine 1.19 mg/dL 0.66-1 .25 Not Available [facility] (Lab) [address] [place] [address], [place], [address], 03/10/2022 13:26:35 03/10/20 22 03/10/2022 COMPR EHENS MALISSA METAB OLIC PANEL GFR >60 Refer ence Range : [place] GFR Healt hy Adult : >60 mL/mi n/1.7 3 m2 Chron ic Kidne y Disea se: 15-60 mL/mi n/1.7 3 m2 Kidne y Failu re: <15/m L/min /1.73 m2 www.n iddk. nih.g ov The MDRD study equat ion has not been valid ated in child fernanda <18 years of age; pregn ant women ; the elder ly >85 years of age; or in some racia l or ethni c subgr oups, such as [facility] nics. Outsi de the valid ated genevieve eters , estim ated GFR is less accur ate, requi ring clini luke judgm ent on a case- by-ca se basis . Clini luke inter preta tion for other races and ages must be made by the clini laurie. The MDRD study equat ion has not been valid ated for the evalu ation of serum creat inine relat ed to nutri kian l statu s or medic ation usage . For perso ns <18 years of age, a pedia tric GFR calcu lator is avail able on the [facility] websi te: https ://brendan w.bryce garcias.o rg/pr ofess ional s/kdo qi/gf r_cal culat or Not Available [facility] (Lab) [address] [place], [address], 03/10/2022 13:26:35 03/10/2003/10/2022 COMPR EHENS MALISSA METAB OLIC PANEL alkaline phosphatase 117 U/L 38-126 Not Available [facility] (Lab) [address] [place], [address], 03/10/2022 13:26:35 03/10/20 22 03/10/2022 COMPR EHENS MALISSA METAB OLIC PANEL alanine aminotransfe rase 51 U/L 0-50 high Not Available [facility] (Lab) [address] [place], [address], 03/10/2022 13:26:35 03/10/20 22 03/10/2022 COMPR EHENS MALISSA METAB OLIC PANEL aspartate aminotransfe rase 41 U/L 15-46 Not Available [facility] (Lab) [address] [place], [address], 03/10/2022 13:26:35 03/10/20 22 03/10/2022 COMPR EHENS MALISSA METAB OLIC PANEL bilirubin, total 0.50 mg/dL 0.20-1 .30 Not Available [facility] (Lab) [address] [place], [address], 03/10/2022 13:26:35 03/10/20 22 03/10/2022 COMPR EHENS MALISSA METAB OLIC PANEL calcium 9.5 mg/dL 8.4-10 .2 Not Available [facility] (Lab) [address] [place], [address], 03/10/2022 13:26:35 03/10/20 22 03/10/2022 COMPR EHENS MALISSA METAB OLIC PANEL total protein 7.7 g/dL 6.3-8. 2 Not Available [facility] (Lab) [address] [place], [address], 03/10/2022 13:26:35 03/10/20 22 03/10/2022 COMPR EHENS MALISSA METAB OLIC PANEL albumin 4.4 g/dL 3.0-4. 4 Not Available [facility] (Lab) [address] [place], [address], 03/10/2022 13:26:35 03/10/20 22 03/10/2022 COMPR EHENS MALISSA METAB OLIC PANEL globulin 3.3 g/dL 2.6-4. 2 Not Available [facility] (Lab) [address] [place], [address], 03/10/2022 13:26:35 03/10/2003/10/2022 COMPR EHENS MALISSA METAB OLIC PANEL A/G ratio 1.3 ratio 1.0-2. 0 Not Available [facility] (Lab) [address] [place], [address], 03/10/2022 13:26:35 03/10/2003/10/2022 LIPID PANEL triglyceride s 157 mg/dL 0-150 high NIH MARIA ELENA NSUS REPOR T RECOM MENDA TION FOR TRIGL YCERI SHARIFA: ADULT CHILD LOW RISK: <150 ----- BODER LINE: 150-1 99 ----- HIGH RISK: >200 ----- Not Available [facility] (Lab) [address] [place], [address], 03/10/2022 13:26:29 03/10/20 22 03/10/2022 LIPID PANEL HDL cholesterol 65 mg/dL 40- Not Available [facility] (Lab) [address] [place], [address], 03/10/2022 13:26:29 03/10/20 22 03/10/2022 LIPID PANEL LDL cholesterol, calculated 81 mg/dL 0-130 NIH MARIA ELENA NSUS REPOR T RECOM MENDA TIONS FOR LDL: ADULT CHILD LOW RISK <130 <110 (OPTI MAL LDL) <100 ----- BORDE RLINE : 130-1 59 ----- HIGH RISK: >160 >130 A TRIGL YCERI DE RESUL T >400 INVAL IDATE S THE CALCU LATIO N FOR LDL FRACT IONAT ION - THE LDL RESUL T WILL NOT BE REPOR AYAH. Not Available [facility] (Lab) [address] [place], [address], 03/10/2022 13:26:29 03/10/20 22 03/10/2022 LIPID PANEL cholesterol 177 mg/dL 140-19 9 NIH MARIA ELENA NSUS RECOM MENDA TION FOR [place] STERO L: ADULT CHILD LOW RISK: <200 <170 BORDE RLINE : <200- 239 ----- HIGH RISK: >240 >200 Not Available [facility] (Lab) [address] [place], [address], 03/10/2022 13:26:29 03/10/20 22 03/10/2022 CBC/C OMPLE TE BLD COUNT W/DIF F white blood cells 7.8 x10'3 /uL 4.2-10 .8 Not Available [facility] (Lab) [address] [place], [address], 03/10/2022 13:02:56 03/10/20 22 03/10/2022 CBC/C OMPLE TE BLD COUNT W/DIF F red blood cells 4.78 x10'6 /uL 4.10-5 .80 Not Available [facility] (Lab) [address] [place], [address], 03/10/2022 13:02:56 03/10/20 22 03/10/2022 CBC/C OMPLE TE BLD COUNT W/DIF F hemoglobin 14.3 g/dL 13.2-1 7.0 Not Available [facility] (Lab) [address] [place], [address], 03/10/2022 13:02:56 03/10/20 22 03/10/2022 CBC/C OMPLE TE BLD COUNT W/DIF F hematocrit 42.5 % 39.3-5 0.0 Not Available [facility] (Lab) [address] [place], [address], 03/10/2022 13:02:56 03/10/20 22 03/10/2022 CBC/C OMPLE TE BLD COUNT W/DIF F mean red cell volume 88.9 fL 80.0-9 7.0 Not Available [facility] (Lab) [address] [place], [address], 03/10/2022 13:02:56 03/10/20 22 03/10/2022 CBC/C OMPLE TE BLD COUNT W/DIF F mean red cell hemoglobin 29.9 pg 27.0-3 3.0 Not Available [facility] (Lab) [address] [place], [address], 03/10/2022 13:02:56 03/10/20 22 03/10/2022 CBC/C OMPLE TE BLD COUNT W/DIF F mean RBC HGB concentratio n 33.6 g/dL 31.0-3 6.0 Not Available [facility] (Lab) [address] [place], [address], 03/10/2022 13:02:56 03/10/20 22 03/10/2022 CBC/C OMPLE TE BLD COUNT W/DIF F red cell distribution width 12.5 % 11.8-1 5.5 Not Available [facility] (Lab) [address] [place], [address], 03/10/2022 13:02:56 03/10/20 22 03/10/2022 CBC/C OMPLE TE BLD COUNT W/DIF F platelets 170 x10'3 /uL 150-40 0 Not Available [facility] (Lab) [address] [place], [address], 03/10/2022 13:02:56 03/10/20 22 03/10/2022 CBC/C OMPLE TE BLD COUNT W/DIF F mean platelet volume 11.5 fL 9.0-12 .4 Not Available [facility] (Lab) [address] [place], [address], 03/10/2022 13:02:56 03/10/20 22 03/10/2022 CBC/C OMPLE TE BLD COUNT W/DIF F neutrophils 59.0 % 39.0-7 2.0 Not Available [facility] (Lab) [address] [place], [address], 03/10/2022 13:02:56 03/10/2003/10/2022 CBC/C OMPLE TE BLD COUNT W/DIF F lymphocytes 26.5 % 16.0-4 7.0 Not Available [facility] (Lab) [address] [place], [address], 03/10/2022 13:02:56 03/10/20 22 03/10/2022 CBC/C OMPLE TE BLD COUNT W/DIF F monocytes 11.2 % 5.0-12 .0 Not Available [facility] (Lab) [address] [place], [address], 03/10/2022 13:02:56 03/10/20 22 03/10/2022 CBC/C OMPLE TE BLD COUNT W/DIF F eosinophils 2.4 % 1.0-7. 0 Not Available [facility] (Lab) [address] [place], [address], 03/10/2022 13:02:56 03/10/20 22 03/10/2022 CBC/C OMPLE TE BLD COUNT W/DIF F basophils 0.8 % 0.0-2. 0 Not Available [facility] (Lab) [address] [place], [address], 03/10/2022 13:02:56 03/10/20 22 03/10/2022 CBC/C OMPLE TE BLD COUNT W/DIF F immature granulocytes 0.1 % 0.00-0 .50 Not Available [facility] (Lab) [address] [place], [address], 03/10/2022 13:02:56 03/10/20 22 03/10/2022 CBC/C OMPLE TE BLD COUNT W/DIF F neutrophils, absolute count 4.60 x10'3 /uL 1.5-8. 0 Not Available [facility] (Lab) [address] [place], [address], 03/10/2022 13:02:56 03/10/20 22 03/10/2022 CBC/C OMPLE TE BLD COUNT W/DIF F lymphocytes, absolute count 2.07 x10'3 /uL 1.07-3 .43 Not Available [facility] (Lab) [address] [place], [address], 03/10/2022 13:02:56 03/10/20 22 03/10/2022 CBC/C OMPLE TE BLD COUNT W/DIF F monocytes, absolute count 0.87 x10'3 /uL 0.29-0 .99 Not Available [facility] (Lab) [address] [place], [address], 03/10/2022 13:02:56 03/10/20 22 03/10/2022 CBC/C OMPLE TE BLD COUNT W/DIF F eosinophils, absolute count 0.19 x10'3 /uL 0.02-0 .53 Not Available [facility] (Lab) [address] [place], [address], 03/10/2022 13:02:56 03/10/20 22 03/10/2022 CBC/C OMPLE TE BLD COUNT W/DIF F basophils, absolute count 0.06 x10'3 /uL 0.01-0 .08 Not Available [facility] (Lab) [address] [place], [address], 03/10/2022 13:02:56 03/10/20 22 03/10/2022 CBC/C OMPLE TE BLD COUNT W/DIF F immature granulocytes ,absolute 0.01 x10'3 /uL 0.00-0 .05 Not Available [facility] (Lab) [address] [place], [address], 03/10/2022 13:02:56 03/10/20 22 03/10/2022 CBC/C OMPLE TE BLD COUNT W/DIF F nucleated red blood cells 0.0 % -0 Not Available [facility] (Lab) [address] [place], [address], 03/10/2022 13:02:56 03/10/20 22 03/10/2022 CBC/C OMPLE TE BLD COUNT W/DIF F NRBC# 0.00 x10'3 /uL Not Available [facility] (Lab) [address] [place], [address], 03/10/2022 13:02:56 10/14/19 23 10/13/2022 COMPR EHENS MALISSA METAB OLIC PANEL sodium 139 mmol/ L 137-14 5 Not Available [facility] (Lab) [address] [place], [address], 10/13/2022 12:00:06 10/14/19 23 10/13/2022 COMPR EHENS MALISSA METAB OLIC PANEL potassium 4.3 mmol/ L 3.5-5. 1 Not Available [facility] (Lab) [address] [place], [address], 10/13/2022 12:00:06 10/14/19 23 10/13/2022 COMPR EHENS MALISSA METAB OLIC PANEL chloride 103 mmol/ L 98-107 Not Available [facility] (Lab) [address] [place], [address], 10/13/2022 12:00:06 10/14/19 23 10/13/2022 COMPR EHENS MALISSA METAB OLIC PANEL carbon dioxide 23 mmol/ L 22-30 Not Available [facility] (Lab) [address] [place], [address], 10/13/2022 12:00:06 10/14/19 23 10/13/2022 COMPR EHENS MALISSA METAB OLIC PANEL anion gap 17.3 mmol/ L 14-22 Not Available [facility] (Lab) [address] [place], [address], 10/13/2022 12:00:06 10/14/19 23 10/13/2022 COMPR EHENS MALISSA METAB OLIC PANEL glucose 93 mg/dL 70-99 Not Available [facility] (Lab) [address] [place], [address], 10/13/2022 12:00:06 10/14/19 23 10/13/2022 COMPR EHENS MALISSA METAB OLIC PANEL BUN 16 mg/dL 8-19 Not Available [facility] (Lab) [address] [place], [address], 10/13/2022 12:00:06 10/14/19 23 10/13/2022 COMPR EHENS MALISSA METAB OLIC PANEL creatinine 0.91 mg/dL 0.66-1 .25 Not Available [facility] (Lab) [address] [place], [address], 10/13/2022 12:00:06 10/14/19 23 10/13/2022 COMPR EHENS MALISSA METAB OLIC PANEL GFR >60 Refer ence Range : [place] GFR Healt hy Adult : >60 mL/mi n/1.7 3 m2 Chron ic Kidne y Disea se: 15-60 mL/mi n/1.7 3 m2 Kidne y Failu re: <15/m L/min /1.73 m2 www.n iddk. nih.g ov The MDRD study equat ion has not been valid ated in child fernanda <18 years of age; pregn ant women ; the elder ly >85 years of age; or in some racia l or ethni c subgr oups, such as Ashanti nics. Outsi de the valid ated genevieve eters , estim ated GFR is less accur ate, requi ring clini luke judgm ent on a case- by-ca se basis . Clini luke inter preta tion for other races and ages must be made by the clini laurie. The MDRD study equat ion has not been valid ated for the evalu ation of serum creat inine relat ed to nutri kian l statu s or medic ation usage . For perso ns <18 years of age, a pedia tric GFR calcu lator is avail able on the [facility] websi te: https ://brendan w.bryce garcias.o rg/pr ofess ional s/kdo qi/gf r_cal culat or Not Available [facility] (Lab) [address] [place], [address], 10/13/2022 12:00:06 10/14/19 23 10/13/2022 COMPR EHENS MALISSA METAB OLIC PANEL alkaline phosphatase 91 U/L 38-126 Not Available [facility] (Lab) [address] [place], [address], 10/13/2022 12:00:06 10/14/19 23 10/13/2022 COMPR EHENS MALISSA METAB OLIC PANEL alanine aminotransfe rase 27 U/L 0-50 Not Available [facility] (Lab) [address] [place], [address], 10/13/2022 12:00:06 10/14/19 23 10/13/2022 COMPR EHENS MALISSA METAB OLIC PANEL aspartate aminotransfe rase 29 U/L 15-46 Not Available [facility] (Lab) [address] [place], [address], 10/13/2022 12:00:06 10/14/19 23 10/13/2022 COMPR EHENS MALISSA METAB OLIC PANEL bilirubin, total 0.60 mg/dL 0.20-1 .30 Not Available [facility] (Lab) [address] [place], [address], 10/13/2022 12:00:06 10/14/19 23 10/13/2022 COMPR EHENS AMLISSA METAB OLIC PANEL calcium 9.3 mg/dL 8.4-10 .2 Not Available [facility] (Lab) [address] [place], [address], 10/13/2022 12:00:06 10/14/19 23 10/13/2022 COMPR EHENS MALISSA METAB OLIC PANEL total protein 7.6 g/dL 6.3-8. 2 Not Available [facility] (Lab) [address] [place], [address], 10/13/2022 12:00:06 10/14/19 23 10/13/2022 COMPR EHENS MALISSA METAB OLIC PANEL albumin 4.2 g/dL 3.0-4. 4 Not Available [facility] (Lab) [address] [place], [address], 10/13/2022 12:00:06 10/14/19 23 10/13/2022 COMPR EHENS MALISSA METAB OLIC PANEL globulin 3.4 g/dL 2.6-4. 2 Not Available [facility] (Lab) [address] [place], [address], 10/13/2022 12:00:06 10/14/19 23 10/13/2022 COMPR EHENS MALISSA METAB OLIC PANEL A/G ratio 1.2 ratio 1.0-2. 0 Not Available [facility] (Lab) [address] [place], [address], 10/13/2022 12:00:06 10/14/19 23 10/13/2022 LIPID PANEL cholesterol 218 mg/dL 140-19 9 high NIH MARIA ELENA NSUS RECOM MENDA TION FOR OK STERO L: ADULT CHILD LOW RISK: <200 <170 BORDE RLINE : <200- 239 ----- HIGH RISK: >240 >200 Not Available [facility] (Lab) [address] [place], [address], 10/13/2022 12:00:08 10/14/19 23 10/13/2022 LIPID PANEL triglyceride s 173 mg/dL 0-150 high NIH MARIA ELENA NSUS REPOR T RECOM MENDA TION FOR TRIGL YCERI SHARIFA: ADULT CHILD LOW RISK: <150 ----- BODER LINE: 150-1 99 ----- HIGH RISK: >200 ----- Not Available [facility] (Lab) [address] [place], [address], 10/13/2022 12:00:08 10/14/1910/13/2022 LIPID PANEL HDL cholesterol 62 mg/dL 40- Not Available [facility] (Lab) [address] [place], [address], 10/13/2022 12:00:08 10/14/1910/13/2022 LIPID PANEL LDL cholesterol, calculated 121 mg/dL 0-130 NIH MARIA ELENA NSUS REPOR T RECOM MENDA TIONS FOR LDL: ADULT CHILD LOW RISK <130 <110 (OPTI MAL LDL) <100 ----- BORDE RLINE : 130-1 59 ----- HIGH RISK: >160 >130 A TRIGL YCERI DE RESUL T >400 INVAL IDATE S THE CALCU LATIO N FOR LDL FRACT IONAT ION - THE LDL RESUL T WILL NOT BE REPOR AYAH. Not Available [facility] (Lab) [address] [place], [address], 10/13/2022 12:00:08 10/14/19 23 10/13/2022 PSA SCREE N PSA medicare screen 0.31 NG/mL 0.00-4 .00 Not Available [facility] (Lab) [address] [place], [address], 10/13/2022 12:40:33 07/15/19 22 07/15/2021 XR, knee [facility] [place] [address] [facility] [address], [place] [address] [phone] Chaka t Name: ARACELY MORAN Access ion #: [id number] Sex: M : 1955 7 Locati on: RAD Attend ing Physic diomedes: ROBERT VALE Orderi ng Physic diomdees: ROBERT VALE Exam Date: 9:49 AM Exam Name: XR KNEE LT 3V Admitt ing Diagno sis(es ): RADIOL OGY REPORT - FINAL EXAM: XR KNEE LT 3V HISTOR Y: pain left knee 65-yea r-old female with left knee pain chroni kelly. COMPAR TEO: None availa ble. TECHNI QUE: 3 views of the left knee were perfor med. FINDIN GS: No acute fractu re is identi fied about the left knee. There is mild latera l sublux ation of the proxim al tibia versus the distal femur. There are tricom partme ntal margin al osteop hytes. There is modera te to severe joint space narrow ing of the medial compar tment. Probab le large joint effusi on. IMPRES ANANYA: Page 1 of 2 [facility] [place] Chaka t Name: ARACELY MORAN Access ion #: [id number] Sex: M : 1955 7 Exam Date: 9:49 AM Exam Name: XR KNEE LT 3V Admitt ing Diagno sis(es ): 1. No acute fractu re of the left knee. 2. Tricom partme ntal degene rative change s of the left knee, greate st in the medial compar tment. 3. Mild latera l sublux ation of the proxim al tibia versus the distal femur, sugges tive of chroni c ligame ntous insuff icienc y. 4. Probab le large joint effusi on. Create d and electr onical ly signed by: Niraj arevalo MD Signed Date: 10:43 AM (CT) Dictat ed by: Niraj arevalo MD DD: 10:43 AM (CT) DT: 10:43 AM (CT) Page 2 of 2 [id number] [facility] (Imaging) [address] [place], [address], 07/19/2022 05:02:18 0418 22 07/15/2021 , echoc ardio gram No observ ation record ed. [id number] [facility] (Imaging) [address] [place], [address], 07/19/2022 05:02:18 Result Notes Documentation Provider Name and Address Organization Details Recorded Time Xr, Knee : [facility] [address] [place] [address] Patient Name: ARACELY MORAN N Sex: M : 1955 Location: [facility] Attending Physician: YESY VALE Ordering Physician: YESY VALE Exam Date: 07/15/2021 9:49 AM Exam Name: XR KNEE LT 3V Admitting Diagnosis(es): RADIOLOGY REPORT - FINAL EXAM: XR KNEE LT 3V HISTORY: pain left knee 65-year-old female with left knee pain chronically. COMPARISON: None available. TECHNIQUE: 3 views of the left knee were performed. FINDINGS: No acute fracture is identified about the left knee. There is mild lateral subluxation of the proximal tibia versus the distal femur. There are tricompartmental marginal osteophytes. There is moderate to severe joint space narrowing of the medial compartment. Probable large joint effusion. IMPRESSION: Page 1 of 2 [facility] Patient Name: ARACELY MORAN N Sex: M : 1955 Exam Date: 07/15/2021 9:49 AM Exam Name: XR KNEE LT 3V Admitting Diagnosis(es): 1. No acute fracture of the left knee. 2. Tricompartmental degenerative changes of the left knee, greatest in the medial compartment. 3. Mild lateral subluxation of the proximal tibia versus the distal femur, suggestive of chronic ligamentous insufficiency. 4. Probable large joint effusion. Created and electronically signed by: Niraj Wakefield MD Signed Date: 07/15/2021 10:43 AM (CT) Dictated by: Niraj Wakefield MD (CT) (CT) Page 2 of 2 Not Available [facility] 07/19/2022 05:02:20 Problems Name Problem SNOMED Code Status Onset Date Resolution Date Notes Provider Name and Address Organization Details Recorded Time Eruption 700458049 Active Not Available [facility] 3 11:10:00 Essential hypertensi on 87113866 Active Not Available [facility] 3 11:10:00 Pain in limb 09786864 Active Not Available [facility] 3 11:10:00 Dyslipidem ia 227387451 Active 2017 Not Available [facility] 3 11:10:00 Osteoarthr itis 496053200 Active 2019 Not Available [facility] 3 11:10:00 Gastroesop hageal reflux disease without esophagiti s 150854743 Active 2020 Not Available [facility] 3 11:10:00 Pain of left shoulder joint 3733720709557 9109 Active 2021 Not Available [facility] 3 11:10:00 Screening for malignant neoplasm of prostate Active 2021 Not Available [facility] 3 11:10:00 Pain of left knee joint 5789009374578 07 Active 2021 Not Available [facility] 3 11:10:00 Heart murmur 03408348 Active 2021 Not Available [facility] 3 11:10:00 Hyperglyce no 77063103 Active 2021 Not Available [facility] 3 11:10:00 Aortic valve calcificat ion 178300649 Active 2022 Not Available [facility] 3 11:10:00 Problem Notes None recorded. Procedures Surgical History Date Name Laterality Status Provider Name and Address Organization Details Recorded Time 04/27/20 22 Knee Replacement completed ALDEN Savage [place] [facility] [employer] 09/18/2022 15:36:35 10/25/19 13 Colonoscopy completed Not Available Critical access hospital 07/20/19 04:42:59 Appendectomy completed Not Available [facility] 07/19/2022 04:42:59 Imaging Results None recorded. Procedure Notes None recorded. Medical Equipment None Reported. Allergies No known drug allergies Medications Name Sig Start Date Stop Date Status Note LastModified by Organization Details LastModified Time atorvastati n 20 mg tablet active Not Available Not Available Not Available atorvastati n 10 mg tablet TAKE 1 TABLET DAILY active Not Available Not Available No t Available hydrocodone 5 mg-acetamin ophen 325 mg tablet 03/27 completed Not Available Not Available Not Available meloxicam 15 mg tablet TAKE 1 TABLET (15 MG TOTAL) BY MOUTH DAILY. 09/18 completed Not Available Not Available Not Available prednisone 20 mg tablet active Not Available Not Available Not Available amlodipine 2.5 mg tablet TAKE 1 TABLET DAILY 2022 active Not Available Not Available Not Avai lable aspirin 81 mg tablet,adolfo yed release TAKE 1 TABLET BY MOUTH 2 TIMES A DAY. 09/18 completed Not Available Not Available Not Available tramadol 50 mg tablet TAKE 1 TABLET (50 MG TOTAL) BY MOUTH EVERY 6 (SIX) HOURS NEEDED (1ST LINE FOR PAIN) 09/18 completed Not Available Not Available Not Available acetaminoph en 500 mg tablet TAKE 2 TABLETS (1,000 MG TOTAL) BY MOUTH EVERY 8 HOURS 09/18 completed Not Available Not Available Not Available cefadroxil 500 mg capsule TAKE 1 CAPSULE BY MOUTH TWICE A DAY FOR 7 DAYS 09/18 completed Not Available Not Available Not Available amoxicillin 875 mg tablet TAKE ONE TABLET BY MOUTH TWICE DAILY FOR 10 DAYS 02/10 completed Not Available Not Available Not Available diclofenac potassium 50 mg tablet take 1 po bid active Not Available Not Available No t Available omeprazole 20 mg capsule,del ayed release TAKE 1 CAPSULE BY MOUTH BEFORE A MEAL DAILY 06/29 completed Not Available Not Available Not Available mupirocin 2 % topical ointment APPLY TO NOSTRILS 2 TIMES A DAY FOR 5 DAYS. STARTING 5 DAYS PRIOR TO SURGERY. 09/18 completed Not Available Not Available Not Available diclofenac sodium 50 mg tablet,adolfo yed release TAKE 1 TABLET TWICE A DAY active Not Available Not Available No t Available ergocalcife rol (vitamin D2) 1,250 mcg (50,000 unit) capsule TAKE 1 CAPSULE BY MOUTH ONCE A WEEK FOR 12 WEEKS, THEN FOLLOW UP WITH YOUR PCP. 09/18 completed Not Available Not Available Not Available methylpredn isolone 4 mg tablets in a dose pack Take 1 tablet by oral route as directed. active Not Available Not Available No t Available ondansetron 4 mg disintegrat ing tablet TAKE 1 TABLET BY MOUTH EVERY 8 HOURS NEEDED FOR NAUSEA AND VOMITING 09/18 completed Not Available Not Available Not Available oxycodone 5 mg tablet TAKE 1 TABLET (5 MG TOTAL) BY MOUTH EVERY 4 (FOUR) HOURS NEEDED (BREAKTHR OUGH PAIN) 09/18 completed Not Available Not Available Not Available pregabalin 75 mg capsule TAKE 1 CAPSULE (75 MG TOTAL) BY MOUTH 2 (TWO) TIMES A DAY FOR 28 DOSES 09/18 completed Not Available Not Available Not Available ibuprofen 2021 active Not Available Not Available Not Avai lable Senexon-S 8.6 mg-50 mg tablet TAKE 2 TABLETS BY MOUTH TWICE A DAY 09/18 completed Not Available Not Available Not Available Suprep Bowel Prep Kit 17.5 gram-3.13 gram-1.6 gram oral solution active Not Available Not Available Not Available Vitals Date Recorded Body mass index (BMI) Body height Heart rate Body temperature Body weight Systolic And Diastolic Provider Name and Address Organization Details Last Updated DateTime 2 36.9 kg/m2 177.8 cm 78 /min 97.2 [degF] 751324. 24 g 138/80 mm[Hg] Not Available [facility] 3 04:49:07 Date Recorded Body mass index (BMI) Body height Heart rate Body temperature Body weight Systolic And Diastolic Provider Name and Address Organization Details Last Updated DateTime 2 36.9 kg/m2 177.8 cm 90 /min 97.6 [degF] 076095. 24 g 138/80 mm[Hg] Not Available [facility] 3 04:49:07 Date Recorded Body height Body mass index (BMI) Body weight Body temperature Heart rate Systolic And Diastolic Provider Name and Address Organization Details Last Updated DateTime 3 177.8 cm 37.6 kg/m2 905356. 2 g 98.3 [degF] 100 /min 140/80 mm[Hg] ALDEN Savage [facility] [employer] [facility] 3 15:38:40 Date Recorded Body mass index (BMI) Body height Heart rate Body temperature Body weight Systolic And Diastolic Provider Name and Address Organization Details Last Updated DateTime 2 36.7 kg/m2 177.8 cm 87 /min 98.2 [degF] 848283. 65 g 132/80 mm[Hg] Not Available [facility] 3 04:49:07 Date Recorded Body height Body mass index (BMI) Body weight Body temperature Heart rate Systolic And Diastolic Provider Name and Address Organization Details Last Updated DateTime 3 177.8 cm 37.7 kg/m2 887481. 79 g 98.5 [degF] 101 /min 138/80 mm[Hg] Julisa rodríguez RN [facility] [employer] [facility] 3 16:04:16 Social History Question Answer Notes LastModified by Organizat ion Details LastModified Time Tobacco Smoking Status Never Smoker Not Available Critical access hospital 07/19/2022 04:41:33 Do You Have An Advance Directive? No [id number] Information not available 07/19/2022 What Is Your Level Of Caffeine Consumption? Moderate MIGRATION.31319 26702 Information not available 07/19/2022 How Much Tobacco Do You Chew? None MIGRATION.10983 01060 Information not available 07/19/2022 In The 14 Days Before Symptom Onset, Have You Had Close Contact With A Laboratory-confi rmed COVID-19 While That Case Was Ill? No MIGRATION.26064 73159 Information not available 07/19/2022 In The 14 Days Before Symptom Onset, Have You Had Close Contact With A Person Who Is Under Investigation For COVID-19 While That Person Was Ill? No MIGRATION.03639 48956 Information not available 07/19/2022 What Type Of Diet Are You Following? REGULAR MIGRATION.65062 83698 Information not available 07/19/2022 What Is The Highest Grade Or Level Of School You Have Completed Or The Highest Degree You Have Received? KS20890-3 MIGRATION.22134 53754 Information not available 07/19/2022 Have There Been Any Changes To Your Family Or Social Situation? No MIGRATION.99128 50991 Information not available 07/19/2022 What Is The Fluoride Status Of Your Home? Unknown MIGRATION.99619 75281 Information not available 07/19/2022 Are There Any Guns Present In Your Home? Yes MIGRATION.77118 58215 Information not available 07/19/2022 Do You Use Insect Repellent Routinely? No MIGRATION.47831 57676 Information not available 07/19/2022 Where Do You Live? [facility] MIGRATION.95243 82096 Information not available 07/19/2022 Do You Have A Medical Power Of Machine Icer? No MIGRATION.53830 42595 Information not available 07/19/2022 What Was The Date Of Your Most Recent Tobacco Screening? 04/18/2023 [email or web address] Information not available 04/18/2023 Have You Ever Been Counseled For Unhealthy Alcohol Use? No MIGRATION.29401 73246 Information not available 07/19/2022 Do You Have Any Pets? Yes Dog MIGRATION.70516 89064 Information not available 07/19/2022 What Is Your Relationship Status? MIGRATION.35373 51497 Information not available 07/19/2022 Do You Use Your Seat Belt Or Car Seat Routinely? Yes MIGRATION.40648 36079 Information not available 07/19/2022 Do You Have Smoke And Carbon Monoxide Detectors In Your Home? Yes MIGRATION.97208 22108 Information not available 07/19/2022 Are You Passively Exposed To Smoke? No MIGRATION.95773 74904 Information not available 07/19/2022 Are There Any Smokers In Your House? Yes Smokes, But Smokes Outside MIGRATION.93249 29595 Information not available 07/19/2022 How Much Tobacco Do You Smoke? No MIGRATION.40176 36983 Information not available 07/19/2022 What Types Of Sporting Activities Do You Participate In? Golf MIGRATION.52132 01169 Information not available 07/19/2022 Do You Use Sunscreen Routinely? No MIGRATION.01430 98027 Information not available 07/19/2022 Has Tobacco Cessation Counseling Been Provided? No Not Needed-nev er Smoked MIGRATION.79758 48722 Information not available 07/19/2022 How Many Years Have You Smoked Tobacco? 0 MIGRATION.41751 73582 Information not available 07/19/2022 Have You Recently Traveled Abroad? No MIGRATION.20948 98276 Information not available 07/19/2022 Do You Have Any Dietary Restrictions? No MIGRATION.95668 23210 Information not available 07/19/2022 Sex: Male Functional Status Question Answer Note LastModified by [employer] Details LastModified Time Do you use any illicit or recreational drugs? No MIGRATION.505805 2792 Information not available 07/19/2022 Do you or have you ever used any other forms of tobacco or nicotine? No MIGRATION.753948 4400 Information not available 07/19/2022 What is your level of alcohol consumption? Occasional MIGRATION.235060 6964 Information not available 07/19/2022 Do you or have you ever used smokeless tobacco? Never used smokeless tobacco MIGRATION.620295 1781 Information not available 07/19/2022 What is your occupation? works at [employer] MIGRATION.197037 8995 Information not available 07/19/2022 Do you or have you ever used e-cigarettes or vape? Never used electronic cigarettes MIGRATION.797413 2651 Information not available 07/19/2022 What is your exercise level? None MIGRATION.168718 5295 Information not available 07/19/2022 Mental Status Question Answer Note LastModified by Organizat ion Details LastModified Time Do you feel stressed (tense, restless, nervous, or anxious, or unable to sleep at night)? LI6732-1 MIGRATION.[id number] 6 Information not available 07/19/2022 Family History Relationship Description Onset Age of this Age Resolved Age Notes LastModified by Organization Details LastModified Time Mother Cerebrovascu lar accident MIGRATION.[id number] Not available 07/19/2022 04:43:06 Mother Diabetes mellitus MIGRATION.738 [id number] Not available 07/19/2022 04:43:06 Father Peripheral vascular disease MIGRATION.865 [id number] Not available 07/19/2022 04:43:06 Medical History Condition Response NERVE DISEASE N BLINDNESS N RHEUMATIC FEVER N KIDNEY STONES N BLADDER PROBLEMS N MRSA N OTHER # 1 N POLIO N LUNG DISEASE/DISORDER N COPD N RADIATION / CHEMOTHERAPY N Other # 2 N BLOOD DISEASES N EAR OR HEARING PROBLEMS N MUMPS N DEPRESSION (INCLUDING POST ) N BOWEL PROBLEMS N STROKE/TIA N ULCERS N BENIGN PROSTATIC HYPERPLASIA N MEASLES N MYOCARDIAL INFARCTION N OBESITY N GERD/NAUSEA N ANEURYSM N URINARY/BLADDER/KIDNEY PROBLEMS N CORONARY ARTERY DISEASE (CAD) N ADDICTION CONCERNS N Impotence N ENDOMETRIOSIS N USE OF BLOOD THINNERS N SKIN PROBLEMS N GASTROINTESTINAL DISORDER N PERIPHERAL VASCULAR DISEASE N MUSCLE,JOINT OR BONE PROBLEMS N GASTROINTESTINAL BLEEDING N BLOOD CLOTS N ASTHMA N CATARACTS N ERECTILE DYSFUNCTION N VARICOSITIES N GI PROBLEMS N Low Testosterone N INFERTILITY N AIDS/HIV N CHEMOTHERAPY / RADIATION N LIVER DISEASE N MALE HYPOGONADISM N HYPERTENSION Y Deficiency N TOURETTE'S N ANXIETY DISORDER N BLOOD TRANSFUSION N ANEMIA/BLOOD DISORDER N CHRONIC EAR INFECTIONS N BRONCHITIS N TUBERCULOSIS N GLAUCOMA N FOOT PROBLEM N DIVERTICULITIS N SLEEP APNEA N CHICKENPOX N INFECTIOUS DISEASE N PROSTATE N HEART ARRHYTHMIA N INSOMNIA N HIGH CHOLESTEROL / HYPERLIPIDEMIA N EYE PROBLEMS N HYPERTHYROIDISM N EDEMA N CHRONIC PAIN SYNDROME N HYPOTHYROIDISM N CAROTID BLOCKAGE N CONSTIPATION N BACK / NECK PROBLEMS N HAVE YOU BEEN HOSPITALIZED OR SEEN IN [facility] ER IN THE PAST YEAR ? N ATHEROSCLEROSIS N BREAST PROBLEMS N DIALYSIS N ECZEMA N OSTEOPOROSIS N ARTHRITIS Y APPENDICITIS N DIABETES, TYPE N BAD TEETH N ENT N HEARTBURN / REFLUX N AUTISM SPECTRUM DISORDER (ASD) N HEPATITIS / LIVER DISEASE N GOUT N SLEEP DISORDER N ALZHEIMER'S DISEASE N Brain Problems N DEMENTIA N HERPES N SEIZURES/EPILEPSY N HEADACHES/MIGRAINES N VASCULAR DISEASE N PACEMAKER N Blood Disorder N DIZZINESS N HEART DISEASE/HEART PROBLEMS N KIDNEY DISEASE N MULTIPLE SCLEROSIS N CANCER: SPECIFY N CARDIAC ARRHYTHMIA N ATRIAL FIBRILLATION N Gall Stones N PULMONARY EMBOLISM N AUTOIMMUNE DISEASE N Immunizations Vaccine Type Date Status Note Provider Nam e and Address Organization Details Recorded Time COVID-19, mRNA, LNP-S, PF, 100 mcg/0.5mL dose or 50 mcg/0.25mL dose 01/27/2021 completed Not Available [facility] 11:10:00 Past Encounters Encounter ID Performer Location Encounter Start Date Encounter Closed Date Diagnosis/Indication Diagnosis SNOMED-CT Code Diagnosis ICD10 Code Diagnosis IMO Codes Diagnosis Note [id number] Yesy Vale MD [facility] Internal Med [facility] [address] [address] 02/10/2021 00:00:00 02/20/2021 22:00:25 [id number] Yesy Vale MD [facility] Internal Med [facility] [address] [address] 06/29/2021 00:00:00 07/24/2021 17:23:04 [id number] Yesy Vale MD [facility] [address] [facility] [place] [address] 09/01/2021 00:00:00 09/02/2021 12:13:42 [id number] Yesy Vale MD [facility] Internal Med [facility] [address] [address] 02/27/2022 00:00:00 02/27/2022 21:55:50 [id number] Yesy Vale MD [facility] Internal Med [facility] [address] [place] [address] [address] 09/18/2022 15:29:27 09/18/2022 15:50:34 Dyslipidemia 637983754 E78.5 Essential hypertension 91579714 I10 Screening for malignant neoplasm of prostate 543121706 Z12.5 Screening for malignant neoplasm of colon 436031089 Z12.11 Osteoarthritis 029325335 M19.90 [id number] Yesy Vale MD [facility] Internal Med [facility] [address] [place] [address] [address] 04/18/2023 15:37:52 04/18/2023 17:07:00 Dyslipidemia 421574616 E78.5 Gastroesop hageal reflux disease without esophagitis [id number] K21.9 Osteoarthritis [id number] M19.90 Essential hypertension [id number] I10 Health Concerns Section Related Observation LastModified by Organization Detai ls LastModified Time None Recorded Concern Status LastModified by Organization Details LastModified Time None Recorded Advance Directives Directive N: Payers Insurance Date Sequence Insurance Name Policy Number Policy Samayoa Covered Member ID Samayoa Member ID Guarantor Name 04/30/2023 1 [facility] [id number] Aracely Nuñez Prazma [id number] [employer] Joaquin Prazma Notes Date Note Type Note Provider Name and Address Organization Details Recorded Time 3 text/html hypertension no headache no dizzinessosteoarthritis bothers him shoulders hips kneesdyslipidemia does try to follow low-fat diettakes his medicines regularly and has no side effects Yesy Vale MD [address], [place], [address], [employer] 09/24/2022 12:02:35 3 text/html hypertension no headache no dizzinessosteoarthritis bothers him shoulders hips kneesdyslipidemia does try to follow low-fat diettakes his medicines regularly and has no side effects Yesy Vale MD [address], [place], [address], [employer] 04/28/2023 13:58:04
--- OUTSIDE RECORDS SUMMARY | 2025-03-17 00:50 | XMS_ITS | Clinical Summary ---
Author Organization [facility] Address [address] [place] [address] Care Team Providers Care Forensic Social Worker Name Role Phone Unavailable Primary Care Provider Unavailabl e Immunizations Immunization Administration Dates Next Due Covid-19, Mrna, Lnp-s, Pf, 30 Mcg/0.3 Ml Dose (P fizer) 02/17/2021,01/27/2021 Social History Tobacco Use Types Packs/Day Years Used Date Smoking Tobacco: Never Assessed Sex and Gender Information Value Date Recorded Sex Assigned at Not on file Legal Sex Male 1:12 PM CDT Gender Identity Not on file Sexual Orientation Not on file Plan of Treatment Health Maintenance Due Date Last Done Comments Hepatitis C Virus (HCV) Screening 1955 TdaP Immunization 1955 Cologuard 2002 Colonoscopy 2002 Colorectal Cancer Screening 2002 Immunochemical Fecal Occult Blood 2002 Pneumococcal Immunization (5 0+ years) (1 of 1 - PCV) 07/31/2007 Zoster Immunization (1 of 2) 07/31/2007 Influenza Immunization (#1) 2025 SARS-COV-2 Immunization ( season) 2025 02/17/2021, 01/27/2021 Respiratory Syncytial Virus (RSV) Immunization (Adult) (1 - 1-dose 75+ series) 2032 Hepatitis B Immunization Aged Out No longer eligible based on patient's age to complete this topic Human Papillomavirus (HPV) Immunization Aged Out No longer eligible b ased on patient's age to complete this topic Meningococcal Immunization (ACWY) Aged Out No longer eligible b ased on patient's age to complete this topic Rotavirus Immunization Aged Out No lo nger eligible based on patient's age to complete this topic
[2025-03-17 09:46] VITALS: BP 149/98; PULSE 107; RESP 20; TEMP 36.3; O2SAT 97; BMI 35.6
[2025-03-17] MEDS: LACTATED RINGERS 1,000 ML 150 ML IV CONT (10:02)
--- NOTE | 2025-03-17 10:18 | P.PNAN_ITS ---
Anes - Initial Pre Proc Eval Procedure: Operation Date: 03/17/25 11:00 Proposed Procedures p Screening Colonoscopy - Les Estes MD Date/Time: 03/17/25 10:18 Surgeon: Les Estes MD Pre Op Diagnosis: Screening Patient Data Age: 69 Gender: M Height: 1.78 m Weight: 112.6 kg Last Vital Signs Temp 97.3 F L 03/17/25 09:46 Pulse 107 H 03/17/25 09:46 Resp 20 03/17/25 09:46 BP 149/98 H 03/17/25 09:46 Pulse Ox 97 03/17/25 09:46 O2 Del Method Room Air 03/17/25 09:46 Allergies Allergy/AdvReac Type Severity Reaction Status Date / Time No Known Allergies Allergy Verified 03/17/25 09:45 Home Medications ?Medication ?Instructions ?Recorded ?Confirmed ?Type amlodipine 2.5 mg tablet 2.5 mg PO DAILY 03/09/25 History rosuvastatin 20 mg tablet 20 mg PO DAILY 03/09/2502/19 History Patient hx anesthesia problems: none Family hx anesthesia problems: none Results Review: All pre-operative results and documents have been reviewed as part of the pre- operative evaluation. [facility] Social History Social History Smoking status: Never smoker Alcohol intake: current Alcohol use details: 2 days a week-beer Substance use: never Substance use type: does not use Living arrangements: with family Spiritual care concerns: No Anes - Eval Final PreProcedure Day of Procedure 03/17/25 10:18 Patient weight: obese Lungs: normal air movement Airway: Mallampati scale class II and special considerations (Upper partial. ) Neurological: alert and oriented Last oral intake: >/= 8 hours ASA classification: III Emergent: no Anesthetic plan: proceed Anesthesia type and monitoring: general GIVS and standard monitoring Results Review: All pre-operative results and documents have been reviewed as part of the pre- operative evaluation. HTN, hyperlipidemia, active walking hundreds of steps daily, no cp or sob. Informed Consent: The patient's anesthetic plan and its attendant risks and benefits were discussed with the patient/family/POA. Questions were solicited and answers provided to the satisfaction of the patient/family/POA.
--- NOTE | 2025-03-17 10:51 | PM.HPGS ---
History of Present Illness History of Present Illness Consent: Risks, benefits, and alternatives have been discussed and questions answered. Patient agrees to proceed with procedure. Chief complaint: Screening Narrative: Vinh Corcoran is a 69 year old male here for screening colonoscopy, last one about 10 years ago Review of Systems Review of Systems: All systems reviewed & are unremarkable except as noted in HPI and below PMFSH Past Medical History Medical History (Updated 03/17/25 @ 10:52 by Les Estes MD) Colon cancer screening Social History Social History Smoking status: Never smoker Alcohol intake: current Alcohol use details: 2 days a week-beer Substance use: never Substance use type: does not use Living arrangements: with family Spiritual care concerns: No Meds Home Medications and Allergies Home Medications ?Medication ?Instructions ?Recorded ?Confirmed ?Type amlodipine 2.5 mg tablet 2.5 mg PO DAILY 03/09/25 03/17/25 History rosuvastatin 20 mg tablet 20 mg PO DAILY 03/09/25 03/17/25 History Allergies Allergy/AdvReac Type Severity Reaction Status Date / Time No Known Allergies Allergy Verified 03/17/25 09:45 Vital Signs Vital Signs - 24 hr 03/17/25 09:46 Temperature 97.3 F L Pulse Rate 107 H Respiratory Rate 20 Blood Pressure 149/98 H Pulse Oximetry 97 Oxygen Delivery Room Air Exam Const: General: comfortable and no acute distress HENMT: Face/Nose/Sinus: Normal nares present Eyes: General: appearance normal, both eyes and all related structures Neck: Neck: no JVD Resp: Auscultation: clear to auscultation bilaterally Cardio: Rate: regular rate Rhythm: regular rhythm GI: Inspection: non-distended GI Palp: Yes Soft to palpation Skin: General skin exam: normal color Extrem: General: normal to inspection Psych: Mental Status: mental status grossly normal Assessment and Plan Assessment and plan (1) Colon cancer screening: Code(s): Z12.11 - Encounter for screening for malignant neoplasm of colon Status: Acute Assessment and Plan: colonoscopy
--- NOTE | 2025-03-17 11:10 | S_PTH ---
PATIENT: Vinh Corcoran LOC: [facility]ER Muñiz#:[id number] AGE/SX: 69/M ROOM: RE03/17/[address]: Les Estes MD : 1955 BED: DIS: 03/17/2025 SPEC #: [id number] RECD: 03/17/25 11:41 STATUS: JOSE RESandy #: [id number] RACHEL: 03/17/25 11:[address]: Les Estes DEPT: [facility] Surgical RECD BY: Olimpia Whitmore ENTERED: 03/17/25 11:42 SP TYPE: Surgical OTHR DR: Perico ValeMD Tissues: A - Colon Polypectomy B - Colon Polypectomy Procedures: Hematoxylin and Eosin Stain Gross and Microscopic Level 4
[2025-03-17 11:13] VITALS: BP 132/78; PULSE 82; RESP 18; O2SAT 97
[2025-03-17 11:23] VITALS: BP 138/85; PULSE 77; RESP 19; O2SAT 96
[2025-03-17 11:33] VITALS: BP 142/86; PULSE 80; RESP 15; O2SAT 97
== END 2025-03-17 11:45 | disposition home or self-care (01) ==
PROVIDERS: PCP Internal Medicine; Referring Provider Internal Medicine; Visit Provider Internal Medicine Gastroenterology
PROC: 0DJD8ZZ Inspection of Lower Intestinal Tract, Via Natural or Artificial Opening Endoscopic (ICD-10-PCS; CPT 45378; principal; 2025-03-17 11:00)
DX: Z12.11 Encounter for screening for malignant neoplasm of colon (principal); D12.3 Benign neoplasm of transverse colon; D12.5 Benign neoplasm of sigmoid colon; K64.8 Other hemorrhoids; I10 Essential (primary) hypertension; E78.5 Hyperlipidemia, unspecified; E66.9 Obesity, unspecified; Z68.35 Body mass index [BMI] 35.0-35.9, adult
CPT/HCPCS: 45385; 88305; J2003; J2704; J7120